=== PATIENT | female | born 1945 | race Caucasian/White ===

== ENCOUNTER 2020-07-16 11:09 | Outpatient (CLI) | payer MEDICARE, SELFPAY ==
[2020-07-16 11:48] LABS: Anion Gap 6 mmol/L (8-16); Blood Urea Nitrogen 15 mg/dL (7-17); Calcium 9.9 mg/dL (8.4-10.2); Carbon Dioxide 28 mmol/L (22-30); Chloride 102 mmol/L (98-107); Cholesterol 232 mg/dL (0-200); Estimated Glomerular Filt Rate > 60; Glucose 91 mg/dL (65-105); HDL Direct 97 mg/dL; Potassium 4.6 mmol/L (3.4-5.0); Sodium 136 mmol/L (137-145); Triglycerides 82 mg/dL (<150)
[2020-07-16 11:59] LABS: LDL Cholesterol Direct 108 mg/dL
== END 2020-07-16 11:10 | disposition home or self-care (01) ==
PROVIDERS: PCP Internal Medicine; Visit Provider Internal Medicine
DX: E78.5 Hyperlipidemia, unspecified (principal); I10 Essential (primary) hypertension
CPT/HCPCS: 36415; 80048; 80061

== ENCOUNTER 2020-08-20 02:07 | Outpatient (CLI) | payer MEDICARE, SELFPAY ==
[2020-08-20 18:25] LABS: SARS-CoV-2 RNA PCR Negative
== END 2020-08-20 02:08 | disposition home or self-care (01) ==
LOC: ANHCOVIDDT 02:07
PROVIDERS: PCP Internal Medicine; Visit Provider Internal Medicine Gastroenterology
DX: Z01.812 Encounter for preprocedural laboratory examination (principal); Z20.828 Contact with and (suspected) exposure to other viral communicable diseases
CPT/HCPCS: 87635; C9803; U0003

== ENCOUNTER 2020-08-23 02:46 | Day surgery (SDC) | payer MEDICARE, SELFPAY ==
[2020-08-17 13:58] VITALS: BMI 21.0
[2020-08-23 08:10] VITALS: BP 160/76; PULSE 64; RESP 20; TEMP 36.9; O2SAT 100; BMI 21.2
[2020-08-23] MEDS: LACTATED RINGERS 1,000 ML 150 ML IV CONT (08:26)
--- NOTE | 2020-08-23 08:39 | WPDGICN ---
Assessment and Plan Assessment and plan (1) Family history of colon cancer in father: Code(s): Z80.0 - Family history of malignant neoplasm of digestive organs Status: Acute Assessment and Plan: Patient's family history is significant father had colon cancer as well as 3 paternal uncles and a cousin all in inside the family. Patient herself has had colon polyps in the past. Plan is for surveillance colonoscopy now and at least at 5 year intervals in the future. GI Consult Note Consult date/time: 08/23/20 08:39 HPI: Nikunj Cohen is a 75 year old female Seen in evaluation at the request of Dr. Miguel A Armenta . patient presents for screening colonoscopy. Family history is significant her father had colon cancer 3 paternal uncles all had colon cancer as well as a cousin on that side of the family. Patient herself has had colon polyps in the past. Current weight appetite bowel movements are normal. She denies abdominal pain. She has had no bleeding. She presents today for screening colonoscopy. Review of Systems Review of Systems: All systems reviewed & are unremarkable except as noted in HPI and below PMFSH Family History Family History (Updated 07/15/19 @ 08:30 by DOCTOR UNKNOWN) Father Carcinoma of colon Mother Cerebrovascular accident Family history of hypothyroidism Social History Social History Smoking status: Never smoker Smoking end date: 11/05/73 Alcohol intake: current Drinks per week: 7 Alcohol use details: COCKTAIL/WINE Substance use: never Substance use type: does not use Living arrangements: alone Spiritual care concerns: No Meds Home Medications and Allergies Home Medications Medication Instructions Recorded Confirmed Type cetirizine 10 mg tablet 10 mg PO DAILY 07/16/20 08/17/20 History fluticasone propionate 50 2 spray NASAL DAILY 07/16/20 08/17/20 History mcg/actuation nasal spray,suspension Adults Multivitamin 1 tab-cap PO DAILY 08/17/20 08/17/20 History Vitamin D3 1,600 mg PO DAILY 08/17/20 08/17/20 History aspirin [Adult Low Dose Aspirin] 81 mg PO DAILY 08/17/20 08/17/20 History calcium 1,200 mg PO DAILY 08/17/20 08/17/20 History lysine [L-Lysine] 1,000 mg PO DAILY 08/17/20 08/17/20 History psyllium [Fiber Therapy (psyllium)] 4 tsp PO DAILY 08/17/20 08/17/20 History vitamin E mixed [Natural Vitamin E] 400 unit PO DAILY 08/17/20 08/17/20 History Allergies Allergy/AdvReac Type Severity Reaction Status Date / Time amoxicillin Allergy Intermediate Diarrhea Verified 08/23/20 08:09 mercury (elemental) Allergy Intermediate EYE Verified 08/23/20 08:09 DRAINAGE MERCURY Allergy Intermediate RASH/HIVES Uncoded 08/23/20 08:09 MERCURY COMPOUNDS Allergy Intermediate Hives Uncoded 08/23/20 08:09 Vital Signs Vital Signs - 24 hr 08/23/20 08:10 Temperature 98.4 F Pulse Rate 64 Respiratory Rate 20 Blood Pressure 160/76 H Pulse Oximetry 100 Exam Narrative: Exam Narrative: Physical exam reveals patient to be alert. Vital signs stable. HEENT exam unremarkable. Lungs are clear to auscultation and percussion. Heart is without murmur or extra sounds. Abdominal exam bowel sounds are present soft nontender with no organomegaly. Digital external rectal exam is normal.
--- NOTE | 2020-08-23 09:01 | WPDANESEPPF ---
Anes - Initial Pre Proc Eval Procedure: Operation Date: 08/23/20 09:00 Proposed Procedures p Screening Colonoscopy - Alexx Cantu MD Date/Time: 08/23/20 09:01 Surgeon: Alexx Cantu MD Pre Op Diagnosis: hx colon polyps, family hx colon CA Patient Data Age: 75 Gender: F Height: 5 ft 6 in Weight: 59.6 kg Last Vital Signs Temp 98.4 F 08/23/20 08:10 Pulse 64 08/23/20 08:10 Resp 20 08/23/20 08:10 BP 160/76 H 08/23/20 08:10 Pulse Ox 100 08/23/20 08:10 Allergies Allergy/AdvReac Type Severity Reaction Status Date / Time amoxicillin Allergy Intermediate Diarrhea Verified 08/23/20 08:09 mercury (elemental) Allergy Intermediate EYE Verified 08/23/20 08:09 DRAINAGE MERCURY Allergy Intermediate RASH/HIVES Uncoded 08/23/20 08:09 MERCURY COMPOUNDS Allergy Intermediate Hives Uncoded 08/23/20 08:09 Home Medications Medication Instructions Recorded Confirmed Type cetirizine 10 mg tablet 10 mg PO DAILY 07/16/20 08/17/20 History fluticasone propionate 50 2 spray NASAL DAILY 07/16/20 08/17/20 History mcg/actuation nasal spray,suspension Adults Multivitamin 1 tab-cap PO DAILY 08/17/20 08/17/20 History Vitamin D3 1,600 mg PO DAILY 08/17/20 08/17/20 History aspirin [Adult Low Dose Aspirin] 81 mg PO DAILY 08/17/20 08/17/20 History calcium 1,200 mg PO DAILY 08/17/20 08/17/20 History lysine [L-Lysine] 1,000 mg PO DAILY 08/17/20 08/17/20 History psyllium [Fiber Therapy (psyllium)] 4 tsp PO DAILY 08/17/20 08/17/20 History vitamin E mixed [Natural Vitamin E] 400 unit PO DAILY 08/17/20 08/17/20 History Patient hx anesthesia problems: none Family hx anesthesia problems: none PMFSH Past Medical History Medical History (Updated 08/23/20 @ 09:01 by Goldy Watkins MD) Essential (primary) hypertension Hypercholesterolemia Family History Family History (Updated 07/15/19 @ 08:30 by DOCTOR UNKNOWN) Father Carcinoma of colon Mother Cerebrovascular accident Family history of hypothyroidism Social History Social History Smoking status: Never smoker Smoking end date: 11/05/73 Alcohol intake: current Drinks per week: 7 Alcohol use details: COCKTAIL/WINE Substance use: never Substance use type: does not use Living arrangements: alone Spiritual care concerns: No Anes - Eval Final PreProcedure Day of Procedure 08/23/20 09:01 Patient weight: normal Heart: regular rate and rhythm Lungs: clear to auscultation Airway: Mallampati scale class III Neurological: alert and oriented Last oral intake: >/= 8 hours ASA classification: II Emergent: no Anesthetic plan: proceed Anesthesia type and monitoring: general GIVS and standard monitoring Informed Consent: The patient's anesthetic plan and its attendant risks and benefits were discussed with the patient/family/POA. Questions were solicited and answers provided to the satisfaction of the patient/family/POA.
[2020-08-23 09:41] VITALS: BP 118/66; PULSE 64; RESP 20; O2SAT 100
[2020-08-23 09:51] VITALS: BP 109/69; PULSE 62; RESP 16; O2SAT 100
[2020-08-23 10:01] VITALS: BP 150/73; PULSE 64; RESP 16; O2SAT 100
== END 2020-08-23 10:14 | disposition home or self-care (01) ==
PROVIDERS: PCP Internal Medicine; Visit Provider Internal Medicine Gastroenterology
PROC: 0DJD8ZZ Inspection of Lower Intestinal Tract, Via Natural or Artificial Opening Endoscopic (ICD-10-PCS; CPT 45378; principal; 2020-08-23 09:00)
DX: Z12.11 Encounter for screening for malignant neoplasm of colon (principal); D12.3 Benign neoplasm of transverse colon; K57.30 Diverticulosis of large intestine without perforation or abscess without bleeding; K64.8 Other hemorrhoids; Z80.0 Family history of malignant neoplasm of digestive organs; Z79.82 Long term (current) use of aspirin
CPT/HCPCS: 45385; 88305; J2704; J7120

== ENCOUNTER → 2020-09-22 10:59 | Outpatient (CLI) | payer MEDICARE, SELFPAY ==
--- NOTE | ~2020-09-22 | DEXA_ITS ---
Bone Density Report Name: Nikunj Cohen Age: 75 Sex: Female Ethnicity: White Date of : 1945 Indication: osteopenia; parental hip fracture; height loss;postmenopausal Referring Provider: ELIF MC D.O. Study: Bone densitometry was performed. Exam Date: September 22, 2020 Accession number: [id number] Bone Density: Region BMD T-score Z-score Classification AP Spine (L1, L4) 0.931 -1.0 1.6 Normal Femoral Neck (Left) 0.635 -1.9 0.3 Osteopenia Total Hip (Left) 0.798 -1.2 0.7 Osteopenia Femoral Neck (Right) 0.584 -2.4 -0.2 Osteopenia Total Hip (Right) 0.815 -1.0 0.9 Normal Total Hip Mean 0.807 -1.1 0.8 Osteopenia World Health Organization criteria for BMD impression classify patients as: Normal (T-score at or above -1.0), Osteopenia (T-score between -1.0 and -2.5), or Osteoporosis (T-score at or below -2.5). 10-year Fracture Risk(1): Major Osteoporotic Fracture 29% Hip Fracture 20% Reported Risk Factors: [place] (), Neck BMD=0.584, BMI=21.8, parental fracture (1) FRAX(R) Version 3.08. Fracture probability calculated for an untreated patient. Fracture probability may be lower if the patient has received treatment. Previous Exams: Region Exam Age BMD T-score BMD Change BMD Change Date g/cm2 vs Baseline vs Previous AP Spine(L1, L4) 09/22/2020 75 0.931 -1.0 0.031* 0.011 08/13/2018 73 0.920 -1.1 0.020 -0.037* 04/29/2016 70 0.957 -0.7 0.056* 0.038* 02/10/2013 67 0.919 -1.1 0.019 0.005 02/01/2011 65 0.915 -1.1 0.014 0.006 01/31/2010 64 0.908 -1.2 0.008 -0.036* 01/20/2008 62 0.945 -0.8 0.044* 0.044* 01/15/2006 60 0.901 -1.2 Total Hip(Left) 09/22/2020 75 0.798 -1.2 -0.029* -0.009 08/13/2018 73 0.807 -1.1 -0.020 -0.011 04/29/2016 70 0.818 -1.0 -0.009 0.067* 02/10/2013 67 0.751 -1.6 -0.076* -0.011 02/01/2011 65 0.762 -1.5 -0.065* -0.007 01/31/2010 64 0.769 -1.4 -0.058* -0.003 01/20/2008 62 0.773 -1.4 -0.055* -0.055* 01/15/2006 60 0.827 -0.9 Total Hip(Right) 09/22/2020 75 0.815 -1.0 -0.027 0.015 08/13/2018 73 0.800 -1.2 -0.042* -0.050* 04/29/2016 70 0.850 -0.8 0.008 0.080* 02/10/2013 67 0.770 -1.4 -0.071* 0.015 02/01/2011 65 0.755 -1.5 -0.087* -0.014 01/31/2010 64 0.769 -1.4 -0.073* 0.014
--- NOTE | ~2020-09-22 | MM_ITS ---
EXAMINATION: MM screening [facility] BI w lizbeth HISTORY: Screening mammogram TECHNIQUE: Craniocaudal and mediolateral oblique 3-D tomosynthesis images were obtained and synthetic 2-D images were generated. CAD analysis was submitted and interpreted. COMPARISON: 09/03/2019, 08/23/2018, 04/29/2016 BREAST PARENCHYMAL COMPOSITION: There are scattered areas of fibroglandular density. FINDINGS: There is no evidence of suspicious mass, calcification, or architectural distortion to sugg est malignancy in either breast. There has been no suspicious interval change. IMPRESSION: 1. No mammographic evidence of malignancy. 2. Recommend routine screening mammography in one year. BI-RADS Category 1: Negative Reviewed, dictated and finalized at location A. [employer]
== END ==
PROVIDERS: PCP Internal Medicine; Visit Provider Internal Medicine
DX: Z12.31 Encounter for screening mammogram for malignant neoplasm of breast (principal); Z13.820 Encounter for screening for osteoporosis; M81.0 Age-related osteoporosis without current pathological fracture; M85.852 Other specified disorders of bone density and structure, left thigh; M85.851 Other specified disorders of bone density and structure, right thigh
CPT/HCPCS: 77063; 77067; 77080

== ENCOUNTER 2021-07-08 09:22 | Outpatient (CLI) | payer MEDICARE, SELFPAY ==
[2021-07-08 10:18] LABS: Alanine Aminotransferase 20 U/L (4-35); Albumin Level 4.5 g/dL (3.5-5.1); Alkaline Phosphatase 26 U/L (38-126); Anion Gap 5 mmol/L (8-16); Aspartate Amino Transferase 31 U/L (14-36); Bilirubin,Total 0.3 mg/dL (0.2-1.3); Blood Urea Nitrogen 22 mg/dL (7-17); Calcium 9.8 mg/dL (8.4-10.2); Carbon Dioxide 30 mmol/L (22-30); Chloride 105 mmol/L (98-107); Cholesterol 239 mg/dL (0-200); Estimated Glomerular Filt Rate > 60; Glucose 112 mg/dL (65-110); HDL Direct 88 mg/dL; Potassium 4.7 mmol/L (3.4-5.0); Sodium 140 mmol/L (137-145); Triglycerides 70 mg/dL (<150)
[2021-07-08 10:29] LABS: LDL Cholesterol Direct 117 mg/dL
[2021-07-08 10:48] LABS: Vitamin D 25 Hydroxy 58.1 ng/mL
== END 2021-07-08 09:23 | disposition home or self-care (01) ==
PROVIDERS: PCP Internal Medicine; Visit Provider Nurse Practitioner
DX: Z51.81 Encounter for therapeutic drug level monitoring (principal); Z79.899 Other long term (current) drug therapy; Z13.21 Encounter for screening for nutritional disorder
CPT/HCPCS: 36415; 80053; 80061; 82306; 84443

== ENCOUNTER → 2021-09-26 10:05 | Outpatient (CLI) | payer MEDICARE, SELFPAY ==
--- NOTE | ~2021-09-26 | MM_ITS ---
EXAMINATION: MM screening [facility] BI w lizbeth HISTORY: Screening mammogram TECHNIQUE: Craniocaudal and mediolateral oblique 3-D tomosynthesis images were obtained and synthetic 2-D images were generated. CAD analysis was submitted and interpreted. COMPARISON: 09/22/2020, 09/03/2019 BREAST PARENCHYMAL COMPOSITION: There are scattered areas of fibroglandular density. FINDINGS: There is no evidence of suspicious mass, calcification, or architectural distortion to sugg est malignancy in either breast. There has been no suspicious interval change. IMPRESSION: 1. No mammographic evidence of malignancy. 2. Recommend routine screening mammography in one year. BI-RADS Category 1: Negative Reviewed, dictated and finalized at location A. D CARE PROVIDER
== END ==
PROVIDERS: PCP Internal Medicine; Visit Provider Nurse Practitioner
DX: Z12.31 Encounter for screening mammogram for malignant neoplasm of breast (principal)
CPT/HCPCS: 77063; 77067

== ENCOUNTER 2022-05-19 08:39 | Outpatient (CLI) | payer MEDICARE, SELFPAY ==
--- NOTE | 2022-05-19 | ECG_ITS ---
Measurements Intervals [place] Rate: 63 P: 52 SD: 210 QRS: -3 QRSD: 82 T: 1 QT: 378 QTc: 387 Interpretive Statements SINUS RHYTHM WITH FIRST DEGREE AV BLOCK DELAYED PRECORDIAL R/S TRANSITION BORDERLINE T WAVE ABNORMALITY- INFERIOR LEADS BASELINE ARTIFACT- I, II, III, AVR, AVL, AVF ABNORMAL ECG Electronically Signed On 05-19-2022 18:30:18 CDT by Joe Rashid D.O.
== END 2022-05-19 08:40 | disposition home or self-care (01) ==
PROVIDERS: PCP Internal Medicine
DX: M72.0 Palmar fascial fibromatosis [Dupuytren] (principal); Z01.818 Encounter for other preprocedural examination; I44.0 Atrioventricular block, first degree
CPT/HCPCS: 93005

== ENCOUNTER 2022-06-30 09:12 | Outpatient (CLI) | payer MEDICARE, SELFPAY ==
[2022-06-30 09:46] LABS: Alanine Aminotransferase 19 U/L (6-35); Albumin Level 4.5 g/dL (3.5-5.1); Alkaline Phosphatase 37 U/L (38-126); Anion Gap 4 mmol/L (8-16); Aspartate Amino Transferase 29 U/L (14-36); Bilirubin,Total 0.5 mg/dL (0.2-1.3); Blood Urea Nitrogen 18 mg/dL (7-17); Calcium 9.3 mg/dL (8.4-10.2); Carbon Dioxide 32 mmol/L (22-30); Chloride 103 mmol/L (98-107); Cholesterol 207 mg/dL (0-200); Estimated Glomerular Filt Rate 60; Glucose 94 mg/dL (65-110); HDL Direct 100 mg/dL; Potassium 4.9 mmol/L (3.4-5.0); Sodium 139 mmol/L (137-145); Triglycerides 64 mg/dL (<150)
[2022-06-30 09:57] LABS: LDL Cholesterol Direct 76 mg/dL
[2022-06-30 10:06] LABS: Vitamin D 25 Hydroxy 62.5 ng/mL
== END 2022-06-30 09:13 | disposition home or self-care (01) ==
PROVIDERS: PCP Internal Medicine; Visit Provider Internal Medicine
DX: Z13.6 Encounter for screening for cardiovascular disorders (principal); Z79.899 Other long term (current) drug therapy; Z13.21 Encounter for screening for nutritional disorder; E78.00 Pure hypercholesterolemia, unspecified
CPT/HCPCS: 36415; 80053; 80061; 82306

== ENCOUNTER → 2022-10-10 14:28 | Outpatient (CLI) | payer MEDICARE, SELFPAY ==
--- NOTE | ~2022-10-10 | DEXA_ITS ---
Bone Density Report Name: JUAN RAMON VASQUEZ Age: 77 Sex: Female Ethnicity: White Date of : 1945 Indication: osteopenia; parental hip fracture; height loss; postmenopausal Referring Provider: Miguel A Armenta Study: Bone densitometry was performed. Exam Date: October 10, 2022 Accession number: [id number] Bone Density: Region BMD T-score Z-score Classification AP Spine (L1, L4) 0.977 -0.5 2.1 Normal Femoral Neck (Left) 0.598 -2.3 0.0 Osteopenia Total Hip (Left) 0.787 -1.3 0.7 Osteopenia Femoral Neck (Right) 0.568 -2.5 -0.3 Osteoporosis Total Hip (Right) 0.797 -1.2 0.8 Osteopenia Total Hip Mean 0.792 -1.3 0.8 Osteopenia World Health Organization criteria for BMD impression classify patients as: Normal (T-score at or above -1.0), Osteopenia (T-score between -1.0 and -2.5), or Osteoporosis (T-score at or below -2.5). 10-year Fracture Risk: FRAX not reported because: Some T-score for Spine Total or Hip Total or Femoral Neck at or below -2.5 Previous Exams: Region Exam Age BMD T-score BMD Change BMD Change Date g/cm2 vs Baseline vs Previous AP Spine(L1, L4) 10/10/2022 77 0.977 -0.5 0.076* 0.046* 09/22/2020 75 0.931 -1.0 0.031* 0.011 08/13/2018 73 0.920 -1.1 0.020 -0.037* 04/29/2016 70 0.957 -0.7 0.056* 0.038* 02/10/2013 67 0.919 -1.1 0.019 0.005 02/01/2011 65 0.915 -1.1 0.014 0.006 01/31/2010 64 0.908 -1.2 0.008 -0.036* 01/20/2008 62 0.945 -0.8 0.044* 0.044* 01/15/2006 60 0.901 -1.2 Total Hip(Left) 10/10/2022 77 0.787 -1.3 -0.041* -0.012 09/22/2020 75 0.798 -1.2 -0.029* -0.009 08/13/2018 73 0.807 -1.1 -0.020 -0.011 04/29/2016 70 0.818 -1.0 -0.009 0.067* 02/10/2013 67 0.751 -1.6 -0.076* -0.011 02/01/2011 65 0.762 -1.5 -0.065* -0.007 01/31/2010 64 0.769 -1.4 -0.058* -0.003 01/20/2008 62 0.773 -1.4 -0.055* -0.055* 01/15/2006 60 0.827 -0.9 Total Hip(Right) 10/10/2022 77 0.797 -1.2 -0.045* -0.018 09/22/2020 75 0.815 -1.0 -0.027 0.015 08/13/2018 73 0.800 -1.2 -0.042* -0.050* 04/29/2016 70 0.850 -0.8 0.008 0.080* 02/10/2013 67 0.770 -1.4 -0.071* 0.015 02/01/2011 65 0.755 -1.5 -0.087* -0.014 01/31/2010 64 0.769 -1.4 -0.073* 0.014 01/20/2008
--- NOTE | ~2022-10-10 | MM_ITS ---
EXAMINATION: MM screening [facility] BI w lizbeth HISTORY: Screening mammogram TECHNIQUE: Craniocaudal and mediolateral oblique 3-D tomosynthesis images were obtained and synthetic 2-D images were generated. CAD analysis was submitted and interpreted. COMPARISON: 09/26/2021, 09/22/2020, 09/03/2019, 08/13/2018 BREAST PARENCHYMAL COMPOSITION: There are scattered areas of fibroglandular density. FINDINGS: RIGHT BREAST: No suspicious mass, calcification, or architectural distortion are identified to sugges t malignancy. There has been no suspicious interval change. LEFT BREAST: An asymmetry is present in the posterior third of the outer breast on the craniocaudal v iew. IMPRESSION: 1. Left breast asymmetry on the craniocaudal view. 2. Additional mammographic views and possible breast ultrasound are recommended. BI-RADS Category 0: Incomplete: Needs additional imaging evaluation. Reviewed, dictated and finalized at location A. IA WRAPPER MAKER IMPRESSION: 1. Left breast asymmetry on the craniocaudal view. 2. Additional mammographic views and possible breast ultrasound are recommended . BI-RADS Category 0: Incomplete: Needs additional imaging evaluation.
== END ==
PROVIDERS: PCP Internal Medicine; Visit Provider Internal Medicine
DX: Z12.31 Encounter for screening mammogram for malignant neoplasm of breast (principal); M81.0 Age-related osteoporosis without current pathological fracture; N64.89 Other specified disorders of breast
CPT/HCPCS: 77063; 77067; 77080

== ENCOUNTER 2022-11-04 11:12 | Emergency (ER) | payer MEDICARE, SELFPAY ==
--- NOTE | ~2022-11-04 | XR_ITS ---
EXAMINATION: XR knee RT 3V DATE: 11/04/2022 12:11 INDICATION: Right knee pain. Fall. TECHNIQUE: 3 views of right knee were obtained. COMPARISON: None. FINDINGS: There is a comminuted fracture of patella. There is 2 mm offset at the articular surface. T here is mild osteoarthritis of patellofemoral compartment. There is a small knee joint effusion. Ther e is anterior knee soft tissue swelling. IMPRESSION: 1. Comminuted fracture of patella. Reviewed, dictated and finalized at location A. CTOR MOBILE
--- NOTE | ~2022-11-04 | XR_ITS ---
EXAMINATION: XR ankle RT min 3V DATE: 11/04/2022 12:11 INDICATION: Right ankle pain and swelling. Fall. TECHNIQUE: 4 views of right ankle were obtained. COMPARISON: None. FINDINGS: Bone alignment is normal. No fracture. Joint spaces are normal. There is ankle soft tissue swelling. IMPRESSION: 1. No fracture. Reviewed, dictated and finalized at location A. ING SALON ATTENDANT IMPRESSION: 1. No fracture.
--- NOTE | ~2022-11-04 | XR_ITS ---
EXAMINATION: XR hand LT 2V DATE: 11/04/2022 12:12 INDICATION: Left hand pain and swelling. Fall. TECHNIQUE: 3 views of left hand were obtained. COMPARISON: None. FINDINGS: There is hyperextension of fifth proximal interphalangeal joint. No acute fracture. There i s an old fracture deformity of base of fifth distal phalanx. There is mild osteoarthritis of first ca rpometacarpal joint, first metacarpophalangeal joint, and some of the interphalangeal joints. IMPRESSION: 1. Mild polyarticular osteoarthritis. Reviewed, dictated and finalized at location A. R BOILER
[2022-11-04 11:45] VITALS: BP 154/73; PULSE 88; RESP 16; TEMP 36.6; O2SAT 100
--- NOTE | 2022-11-04 12:35 | ED.LOWEXIN ---
HPI - Extremity Injury (Lower) General Chief Complaint: Extremity Injury, Lower Stated Complaint: fall, right leg pain Time Seen by Provider: 11/04/22 12:38 Source: patient Mode of arrival: ambulatory Limitations: no limitations History of Present Illness HPI Narrative: 77-year-old female presented for complaint of pain to the right knee, right ankle and left hand after a fall 12 days ago. She states she missed a step and tripped on her neighbor's porch causing her to fall forward. She endorses striking her head, and resulted in a left diapers. She denies loss of consciousness. She reports she has continued to have swelling around the knee and now down to the ankle with bruising. States it feels like a burning sensation. She has been walking and using crutches at home. Denies numbness, tingling or weakness. Denies chest pain, shortness of breath, wheezing or dizziness. Related Data Home Medications Medication Instructions Recorded Confirmed fluticasone propionate 50 2 spray intranasal DAILY PRN 07/16/20 07/12/22 mcg/actuation nasal Congestion spray,suspension (Flonase Allergy Relief) aspirin 81 mg tablet 81 mg PO DAILY 08/17/20 07/12/22 calcium 600 mg capsule 1,200 mg PO DAILY 08/17/20 07/12/22 lysine 500 mg tablet (L-Lysine) 1,000 mg PO DAILY 08/17/20 07/12/22 psyllium 4 tsp PO DAILY 08/17/20 07/12/22 vitamin E mixed 400 unit capsule 400 unit PO DAILY 08/17/20 07/12/22 cetirizine 10 mg capsule (Zyrtec) 10 mg PO DAILY 05/02/22 07/12/22 multivitamin with minerals-folic 1 tablet PO DAILY 05/02/22 07/12/22 acid 0.4 mg tablet Allergies Allergy/AdvReac Type Severity Reaction Status Date / Time amoxicillin AdvReac Intermediate Diarrhea Verified 07/12/22 13:06 MERCURY COMPOUNDS Allergy Intermediate ITCHING AT Uncoded 05/02/22 11:38 EYES Review of Systems Review of Systems: per HPI All systems reviewed & are unremarkable except as noted in HPI and below PMFSH Past Medical History Medical History Essential (primary) hypertension Hypercholesterolemia Family History Family History Father Carcinoma of colon Mother Cerebrovascular accident Family history of hypothyroidism Social History Social History Smoking packs per day: 0.25 Smoking cigarettes per day: 5.0 Years smoked: 7 Smoking pack-years: 1.75 Smoking status: Former smoker Tobacco type: cigarettes Smoking end date: 05/05/70 Alcohol intake: current Drinks per week: 7 Alcohol use details: COCKTAIL/WINE Substance use: never Substance use type: does not use Spiritual care concerns: No Comments At time of signature, I have reviewed and agree with nursing past medical, surgical, social and family history unless otherwise noted. Please see nursing chart for further information. There is no relevant family history pertinent to the presenting complaint Exam Narrative: GENERAL: Well-appearing, well-nourished HEAD: Normocephalic EYES: PERRLA, conjunctivae clear left lower eye/orbit yellow bruising NECK: Supple. full ROM CHEST: Speaks in full sentences. No respiratory distress. HEART: Regular rate and rhythm. Normal and equal peripheral pulses. EXTREMITIES: Right knee with full ROM, able to fully extend at knee with passive assistance; moderate swelling to the right knee down to the ankle. Wearing compression socks. Moderate medial thigh bruising. RLE has slightly decreased strength and normal sensation. No open wounds, alignment normal, pulse palpable and equal bilaterally, skin warm, dry, pink. Capillary refill less than 3 seconds. Left hand 4th and 5th digit bruising with mild swelling. SKIN: Warm, dry, no rash. NEURO: Alert and oriented x3. PSYCH: Normal mood and affect Course Course Emergency Course: Patient is aware of diagnosis, un
== END 2022-11-04 13:05 | disposition home or self-care (01) ==
PROVIDERS: Emergency Provider Nurse Practitioner Family; PCP Internal Medicine
DX: S82.041A Displaced comminuted fracture of right patella, initial encounter for closed fracture (principal); W10.9XXA Fall (on) (from) unspecified stairs and steps, initial encounter; I10 Essential (primary) hypertension; E78.00 Pure hypercholesterolemia, unspecified; Z87.891 Personal history of nicotine dependence
CPT/HCPCS: 73120; 73562; 73610; 99214; G0463; L1830

== ENCOUNTER → 2023-01-01 07:48 | Outpatient (CLI) | payer MEDICARE, SELFPAY ==
--- NOTE | ~2023-01-01 | MMUS_ITS ---
EXAMINATION: MM diagnostic [facility] LT w lizbeth, US breast LT limited HISTORY: Mammographic asymmetry reported in lateral left breast on screening craniocaudal view of 10/10/2022 TECHNIQUE: Additional 3-D tomosynthesis images of the left breast were performed and synthetic 2-D im ages were generated. CAD analysis was submitted and interpreted. High resolution upper outer quadrant and lower outer quadrant left breast ultrasound was performed. COMPARISON: 10/10/2022, 09/26/2021, 09/22/2020 bilateral screening mammogram examinations FINDINGS: MAMMOGRAPHIC FINDINGS: No suspicious mass is evident. There is mild mammographic asymmetry in the outer mid left breast. Ult rasound examination of the upper outer and lower-outer quadrants was performed. ULTRASOUND: No suspicious mass or shadowing, cyst or other significant sonographic finding is noted in the outer half of the left breast. IMPRESSION: 1. No mammographic evidence of malignancy 2. Routine annual mammographic screening is recommended BI-RADS Category 1: Negative Reviewed, dictated and finalized at location A. ING CLERKS IMPRESSION: 1. No mammographic evidence of malignancy 2. Routine annual mammographic screening is recommended BI-RADS Category 1: Negative
== END ==
PROVIDERS: PCP Internal Medicine; Visit Provider Internal Medicine
DX: R92.8 Other abnormal and inconclusive findings on diagnostic imaging of breast (principal)
CPT/HCPCS: 76642; 77061; 77065; G0279

== ENCOUNTER 2023-05-05 10:42 | Emergency (ER) | payer MEDICARE, SELFPAY ==
--- NOTE | ~2023-05-05 | XR_ITS ---
EXAMINATION: XR chest 2V DATE: 05/05/2023 11:34 INDICATION: Left-sided chest pain TECHNIQUE: PA and lateral views of the chest are obtained. COMPARISON: 05/30/2012 FINDINGS: The lungs are free of acute opacities. No pleural effusion or pneumothorax. The cardiomedia stinal silhouette is normal. There is mild thoracic spondylosis. IMPRESSION: 1. No acute cardiopulmonary abnormality. Reviewed, dictated and finalized at location A.
--- NOTE | 2023-05-05 11:00 | ECG_ITS ---
Measurements Intervals [place] Rate: 59 P: -38 [place]: 197 QRS: -20 QRSD: 84 T: -6 QT: 393 QTc: 392 Interpretive Statements SINUS BRADYCARDIA BORDERLINE ST-T WAVE ABNORMALITY- INFERIOR LEADS BORDERLINE ECG COMPARED TO ECG 05/19/2022 09:08:23 SINUS BRADYCARDIA NOW PRESENT Electronically Signed On 05-05-2023 15:46:02 CDT by Joe Rashid D.O.
[2023-05-05 11:01] VITALS: BP 152/91; PULSE 65; RESP 16; TEMP 36.6; O2SAT 100
--- NOTE | 2023-05-05 11:16 | ED.CHESTPAIN ---
HPI - Chest Pain General Chief Complaint: Extremity Problem,Nontraumatic Stated Complaint: CHEST PAIN/L ARM NUMBNESS Time Seen by Provider: 05/05/23 11:10 Source: patient, RN notes reviewed and old records reviewed Mode of arrival: ambulatory Limitations: no limitations History of Present Illness HPI narrative: 77 year old female presents to [facility] care with complaints of left upper chest pain radiating laterally to under her left arm which started last night at around midnight. Patient reports that her left arm feels numb and tingling at times and pain is worse when she raises her arm. Patient reports that she took a regular aspirin this morning instead of her baby aspirin. Patient reports that she has no shortness of breath denies any increased pain with deep breathing. Patient has strong pulses to left arm with brisk capillary refill to her fingers. patient reports that she push mowed her yard yesterday, denies any known injury to her arm, neck or upper back. MD complaint: other (left upper chest pain going to left lateral area under arm with increase pain when lifts arm) Onset (ago): day(s) (at midnight 11-12 hours ago) Prior episodes: No Treatment prior to arrival: aspirin Related Data Home Medications Medication Instructions Recorded Confirmed aspirin 81 mg tablet 81 mg PO DAILY 08/17/20 05/05/23 calcium 600 mg capsule 1,200 mg PO DAILY 08/17/20 12/20/22 lysine 500 mg tablet (L-Lysine) 1,000 mg PO DAILY 08/17/20 12/20/22 vitamin E mixed 400 unit capsule 400 unit PO DAILY 08/17/20 12/20/22 multivitamin with minerals-folic 1 tablet PO DAILY 05/02/22 12/20/22 acid 0.4 mg tablet Allergies Allergy/AdvReac Type Severity Reaction Status Date / Time amoxicillin AdvReac Intermediate Diarrhea Verified 05/05/23 11:13 MERCURY COMPOUNDS Allergy Intermediate ITCHING AT Uncoded 05/05/23 11:13 EYES Review of Systems Review of Systems: CONSTITUTIONAL: Denies fever, chills, or sweats. EYES: Denies visual changes, redness, or discharge. ENT: Denies rhinorrhea, congestion, sore throat, or otalgia. CARDIOVASCULAR: left upper chest pain radiates to lateral chest under arm,no palpitations, or edema. RESPIRATORY: Denies cough or dyspnea. GASTROINTESTINAL: Denies abdominal pain, nausea, vomiting, or diarrhea. GENITOURINARY: Denies dysuria or hematuria. SKIN: Denies rash or itching. MUSCULOSKELETAL: Denies back pain, joint pain, or myalgia. NEUROLOGIC: Denies headache, numbness, or weakness. PSYCHIATRIC: Denies anxiety or depression. All systems reviewed & are unremarkable except as noted in HPI and below PMFSH Past Medical History Medical History (Updated 05/06/23 @ 16:33 by Iraida Adame NP) Dupuytren's contracture of left hand Essential (primary) hypertension Herpes keratitis of right eye Hypercholesterolemia DEON (obstructive sleep apnea) Osteoporosis Pneumonia Spinal cord abscess Synovial cyst of lumbar spine removed Surgical History Surgical History (Updated 05/06/23 @ 16:30 by Iraida Adame NP) H/O dilation and curettage Status post endovenous radiofrequency ablation (RFA) of saphenous vein Family History Family History Father Carcinoma of colon Mother Cerebrovascular accident Family history of hypothyroidism Social History Social History Smoking packs per day: 0.25 Smoking cigarettes per day: 5.0 Years smoked: 7 Smoking pack-years: 1.75 Smoking status: Former smoker Tobacco type: cigarettes Smoking end date: 05/05/70 Alcohol intake: current Drinks per week: 7 Alcohol use details: COCKTAIL/WINE Substance use: never Substance use type: does not use Lack of Transportation: No Lack of Food: Never True Current Housing: I Have Housing Concerned About Future Housing: No Difficulty Paying Gas/Electric Bills: No Difficulty Paying for Meds: No Currently
[2023-05-05] MEDS: KETOROLAC 30 MG/ML VIAL (*BKC) IM (12:15)
== END 2023-05-05 12:26 | disposition home or self-care (01) ==
PROVIDERS: Emergency Provider Registered Nurse; PCP Nurse Practitioner
DX: R07.89 Other chest pain (principal); Z79.82 Long term (current) use of aspirin; I10 Essential (primary) hypertension; E78.00 Pure hypercholesterolemia, unspecified; M81.0 Age-related osteoporosis without current pathological fracture; Z87.891 Personal history of nicotine dependence
CPT/HCPCS: 71046; 93005; 96372; 99213; G0463; J1885

== ENCOUNTER 2023-07-20 09:32 | Outpatient (CLI) | payer MEDICARE, SELFPAY ==
[2023-07-20 10:08] LABS: Hematocrit 42.7 % (37.0-47.0); Hemoglobin 13.5 g/dL (12.0-15.0); Mean Corpuscular HGB Conc 31.6 g/dl (32-36); Mean Corpuscular Hemoglobin 30.5 pg (26-34); Mean Corpuscular Volume 96.6 fl (80-100); Mean Platelet Volume 10.5 fl (7.4-10.4); Platelet Count Result 233 k/mm3 (150-375); Red Blood Count 4.42 M/mm3 (4.2-5.4); Red Cell Distribution Width 12.8 % (11.5-14.5); White Blood Count 4.6 K/mm3 (4.5-10.0)
[2023-07-20 10:20] LABS: Alanine Aminotransferase 21 U/L (6-35); Alkaline Phosphatase 38 U/L (38-126); Anion Gap 4 mmol/L (8-16); Aspartate Amino Transferase 28 U/L (14-36); Bilirubin,Total 0.5 mg/dL (0.2-1.3); Blood Urea Nitrogen 15 mg/dL (7-17); Calcium 9.1 mg/dL (8.4-10.2); Carbon Dioxide 29 mmol/L (22-30); Chloride 105 mmol/L (98-107); Cholesterol 237 mg/dL (0-200); Estimated Glomerular Filt Rate 60; Glucose 88 mg/dL (65-110); HDL Direct 98 mg/dL; Potassium 4.3 mmol/L (3.4-5.0); Sodium 138 mmol/L (137-145); Triglycerides 56 mg/dL (<150)
[2023-07-20 10:30] LABS: LDL Cholesterol Direct 107 mg/dL
== END 2023-07-20 09:33 | disposition home or self-care (01) ==
LOC: ANHLAB 09:33
PROVIDERS: PCP Nurse Practitioner; Visit Provider Nurse Practitioner
DX: Z79.899 Other long term (current) drug therapy (principal)
CPT/HCPCS: 36415; 80053; 80061; 84443; 85027

== ENCOUNTER 2023-09-15 17:00 | Emergency (ER) | payer MEDICARE, SELFPAY ==
[2023-09-15 17:11] VITALS: BP 200/94; PULSE 70; RESP 16; TEMP 36.4; O2SAT 100
[2023-09-15 17:13] VITALS: BP 200/94; PULSE 70; RESP 16; TEMP 36.4; O2SAT 100
--- NOTE | 2023-09-15 17:27 | ED.WOUNDLAC ---
HPI - Wound/Laceration General Chief Complaint: Wound/Laceration Stated Complaint: Cut wrist Time Seen by Provider: 09/15/23 17:20 Source: patient, RN notes reviewed and old records reviewed Mode of arrival: ambulatory Limitations: no limitations History of Present Illness HPI narrative: 78 year old female who presents to [facility] care with complaints of wound to her right inner forearm from her Euonymus tree when she was pruning the leaves when a piece poked into her right forearm and scraped upward causing skin tear to skin measuring 4cm X2.5cm with some yellow colored drainage on old dressing noted. Patient denies any fever, chills or sweats,patient reports she came here because she felt wound looking more swollen today. Patient has been rinsing with tepid water, application of Neosporin and Telfa and Coban wrap dressing. Onset (ago): week(s) (3days) Location: other (right inner forearm) Extremity Location: Right: forearm (inner forearm) Treatments prior to arrival: bandage and other (cleansing) Related Data Home Medications Medication Instructions Recorded Confirmed aspirin 81 mg tablet 81 mg PO DAILY 08/17/20 09/15/23 calcium 600 mg capsule 1,200 mg PO DAILY 08/17/20 09/15/23 lysine 500 mg tablet (L-Lysine) 1,000 mg PO DAILY 08/17/20 09/15/23 vitamin E mixed 400 unit capsule 400 unit PO DAILY 08/17/20 09/15/23 multivitamin with minerals-folic 1 tablet PO DAILY 05/02/22 09/15/23 acid 0.4 mg tablet Allergies Allergy/AdvReac Type Severity Reaction Status Date / Time amoxicillin AdvReac Intermediate Diarrhea Verified 09/15/23 17:12 MERCURY COMPOUNDS Allergy Intermediate ITCHING AT Uncoded 09/15/23 17:12 EYES Review of Systems Review of Systems: CONSTITUTIONAL: Denies fever, chills, or sweats. CARDIOVASCULAR: Denies chest pain, palpitations, or edema. RESPIRATORY: Denies cough or dyspnea. GASTROINTESTINAL: Denies abdominal pain, nausea, vomiting SKIN: Reports skin wound to right inner forearm redness and swelling. positive for yellowish colored drainage, no vesicles, bullae, numbness,or pain beyond proportion MUSCULOSKELETAL: Denies myalgia. NEUROLOGIC: Denies headache, numbness All systems reviewed & are unremarkable except as noted in HPI and below PMFSH Past Medical History Medical History Dupuytren's contracture of left hand Essential (primary) hypertension Herpes keratitis of right eye Hypercholesterolemia DEON (obstructive sleep apnea) Osteoporosis Pneumonia Spinal cord abscess Synovial cyst of lumbar spine removed Surgical History Surgical History H/O dilation and curettage Status post endovenous radiofrequency ablation (RFA) of saphenous vein Family History Family History Father Carcinoma of colon Mother Cerebrovascular accident Family history of hypothyroidism Social History Social History Smoking packs per day: 0.25 Smoking cigarettes per day: 5.0 Years smoked: 7 Smoking pack-years: 1.75 Smoking status: Former smoker Tobacco type: cigarettes Smoking end date: 05/05/70 Alcohol intake: current Drinks per week: 7 Alcohol use details: COCKTAIL/WINE Substance use: never Substance use type: does not use Lack of Transportation: No Lack of Food: Never True Current Housing: I Have Housing Concerned About Future Housing: No Difficulty Paying Gas/Electric Bills: No Difficulty Paying for Meds: No Currently Unemployed: No Education: High School Diploma/GED Difficulty w/ Childcare or Family Care: No Living arrangements: alone Spiritual care concerns: No Comments At time of signature, agree with nursing past medical, surgical, social and family history. There is no relevant family history pertinent to the presenting complaint
== END 2023-09-15 17:32 | disposition home or self-care (01) ==
PROVIDERS: Emergency Provider Registered Nurse; PCP Nurse Practitioner
DX: S51.811A Laceration without foreign body of right forearm, initial encounter (principal); I10 Essential (primary) hypertension; Z79.82 Long term (current) use of aspirin; Z79.899 Other long term (current) drug therapy; Z87.891 Personal history of nicotine dependence; W45.8XXA Other foreign body or object entering through skin, initial encounter
CPT/HCPCS: 87070; 87075; 87076; 87147; 87181; 87186; 87205; 99213; G0463

== ENCOUNTER 2024-07-22 09:00 | Outpatient (CLI) | payer MEDICARE, SELFPAY ==
[2024-07-22 09:33] LABS: Basophils Percent Auto 0.5 % (0.2-1.2); Eosinophils Absolute Auto 0.2 K/mm3 (0-0.3); Eosinophils Percent Auto 3.5 % (0-4.4); Hemoglobin 13.4 g/dL (12.0-15.0); Immature Granulocyte Absolute 0.01 K/mm3 (0.00-0.031); Immature Granulocyte Percent A 0.2 % (0-0.5); Lymphocytes Absolute Auto 1.23 K/mm3 (0.9-3.2); Lymphocytes Percent Auto 22.5 % (18.3-44.2); Mean Corpuscular HGB Conc 32.7 g/dl (32-36); Mean Corpuscular Volume 94.9 fl (80-100); Mean Platelet Volume 10.7 fl (7.4-10.4); Monocytes Absolute Auto 0.6 K/mm3 (0.1-0.6); Monocytes Percent Auto 10.8 % (2.6-8.5); Neutrophils Absolute Auto 3.4 K/mm3 (1.3-6.7); Neutrophils Percent Auto 62.5 % (45.5-73.1); Platelet Count Result 228 k/mm3 (150-375); Red Blood Count 4.32 M/mm3 (4.2-5.4); Red Cell Distribution Width 12.8 % (11.5-14.5); White Blood Count 5.5 K/mm3 (4.5-10.0)
[2024-07-22 09:55] LABS: Alanine Aminotransferase 17 U/L (6-35); Albumin Level 4.2 g/dL (3.5-5.1); Alkaline Phosphatase 31 U/L (38-126); Anion Gap 7 mmol/L (4-12); Aspartate Amino Transferase 31 U/L (14-36); Bilirubin,Total 0.7 mg/dL (0.2-1.3); Blood Urea Nitrogen 23 mg/dL (7-17); Calcium 9.4 mg/dL (8.4-10.2); Carbon Dioxide 28 mmol/L (22-30); Chloride 103 mmol/L (98-107); Cholesterol 207 mg/dL (0-200); Estimated Glomerular Filt Rate 60; Glucose 90 mg/dL (65-110); HDL Direct 73 mg/dL; Potassium 4.2 mmol/L (3.4-5.0); Sodium 138 mmol/L (137-145); Triglycerides 71 mg/dL (<150)
[2024-07-22 10:06] LABS: LDL Cholesterol Direct 109 mg/dL
[2024-07-22 10:37] LABS: Vitamin D 25 Hydroxy 86.9 ng/mL
== END 2024-07-22 09:01 | disposition home or self-care (01) ==
LOC: ANHLAB 09:06
PROVIDERS: PCP Nurse Practitioner; Visit Provider Internal Medicine
DX: E78.5 Hyperlipidemia, unspecified (principal); Z79.899 Other long term (current) drug therapy; Z13.29 Encounter for screening for other suspected endocrine disorder; E78.00 Pure hypercholesterolemia, unspecified; I10 Essential (primary) hypertension; Z13.21 Encounter for screening for nutritional disorder
CPT/HCPCS: 36415; 80053; 80061; 82306; 84443; 85025

== ENCOUNTER 2025-07-31 08:58 | Outpatient (CLI) | payer MEDICARE, SELFPAY ==
[2025-07-31 09:27] LABS: Hematocrit 41.9 % (37.0-47.0); Hemoglobin 13.4 g/dL (12.0-15.0); Mean Corpuscular HGB Conc 32.0 g/dl (32-36); Mean Corpuscular Hemoglobin 29.4 pg (26-34); Mean Corpuscular Volume 91.9 fl (80-100); Platelet Count Result 274 k/mm3 (150-375); Red Blood Count 4.56 M/mm3 (4.2-5.4); White Blood Count 4.8 K/mm3 (4.5-10.0)
[2025-07-31 09:56] LABS: Alanine Aminotransferase 18 U/L (6-35); Albumin Level 4.1 g/dL (3.5-5.1); Alkaline Phosphatase 38 U/L (38-126); Anion Gap 4 mmol/L (4-12); Aspartate Amino Transferase 28 U/L (14-36); Bilirubin,Total 0.5 mg/dL (0.2-1.3); Blood Urea Nitrogen 19 mg/dL (7-17); Calcium 9.6 mg/dL (8.4-10.2); Carbon Dioxide 29 mmol/L (22-30); Chloride 106 mmol/L (98-107); Cholesterol 215 mg/dL (0-200); Estimated Glomerular Filt Rate 60; Glucose 90 mg/dL (65-110); HDL Direct 74 mg/dL; Potassium 4.2 mmol/L (3.4-5.0); Sodium 139 mmol/L (137-145); Total Protein 6.6 g/dL (6.3-8.2); Triglycerides 100 mg/dL (<150)
== END 2025-07-31 08:59 | disposition home or self-care (01) ==
PROVIDERS: PCP Nurse Practitioner; Visit Provider Nurse Practitioner
DX: E78.5 Hyperlipidemia, unspecified (principal)
CPT/HCPCS: 36415; 80053; 80061; 85027

== ENCOUNTER 2025-09-01 00:57 | Day surgery (SDC) | payer MEDICARE, SELFPAY ==
[2025-08-24 11:20] VITALS: BMI 21.7
[2025-09-01 11:51] VITALS: BP 164/69; PULSE 66; RESP 18; TEMP 36.2; O2SAT 100
[2025-09-01] MEDS: LACTATED RINGERS 1,000 ML 150 ML IV CONT (12:01)
--- NOTE | 2025-09-01 12:27 | WPDANESEPPF ---
Anes - Initial Pre Proc Eval Procedure: Operation Date: 09/01/25 13:00 Proposed Procedures p Screening Colonoscopy - Kosta Marte MD Date/Time: 09/01/25 12:27 Surgeon: Kosta Marte MD Pre Op Diagnosis: Family history of malignant neoplasm of digestive Patient Data Age: 80 Gender: F Height: 1.68 m Weight: 60.3 kg Last Vital Signs Temp 97.1 F L 09/01/25 11:51 Pulse 66 09/01/25 11:51 Resp 18 09/01/25 11:51 BP 164/69 H 09/01/25 11:51 Pulse Ox 100 09/01/25 11:51 O2 Del Method Room Air 09/01/25 11:51 Allergies Allergy/AdvReac Type Severity Reaction Status Date / Time amoxicillin AdvReac Intermediate Diarrhea Verified 09/01/25 11:47 MERCURY COMPOUNDS Allergy Intermediate ITCHING AT Uncoded 07/28/25 10:01 EYES Home Medications ?Medication ?Instructions ?Recorded ?Confirmed ?Type aspirin 81 mg tablet 81 mg PO DAILY 08/17/20 09/01/25 History calcium 600 mg capsule 1,200 mg PO DAILY 08/17/20 09/01/25 History lysine 500 mg tablet (L-Lysine) 1,000 mg PO DAILY 08/17/20 09/01/25 History vitamin E mixed 400 unit capsule 400 unit PO DAILY 08/17/20 09/01/25 History multivitamin with minerals-folic 1 tablet PO DAILY 05/02/22 09/01/25 History acid 0.4 mg tablet psyllium husk 0.4 gram capsule 0.4 g PO DAILY 07/23/24 09/01/25 History (Daily Fiber) alendronate 70 mg tablet (Fosamax) 70 mg PO WEEKLY #12 tabs 12/25/24 09/01/25 Rx Vitamin D 50 mcg PO DAILY 01/27/25 09/01/25 History Patient hx anesthesia problems: none Family hx anesthesia problems: none Results Review: All pre-operative results and documents have been reviewed as part of the pre-operative evaluation. [facility] Past Medical History Medical History BMI 21.0-21.9, adult DEON (obstructive sleep apnea) Dupuytren's contracture of left hand Herpes keratitis of right eye Pneumonia Synovial cyst of lumbar spine removed Osteoporosis Spinal cord abscess Essential (primary) hypertension Hypercholesterolemia Surgical History Surgical History H/O dilation and curettage Status post endovenous radiofrequency ablation (RFA) of saphenous vein Family History Family History (Updated 07/28/25 @ 14:04 by Yanci Calero [facility]) Father Carcinoma of colon Mother Cerebrovascular accident Family history of hypothyroidism Rheumatic fever Sibling Renal cancer FH: kidney cancer Social History Social History Smoking packs per day: 0.25 Smoking cigarettes per day: 5.0 Years smoked: 7 Smoking pack-years: 1.75 Smoking status: Former smoker Tobacco type: cigarettes Smoking end date: 05/05/70 Alcohol intake: current Drinks per week: 7 Alcohol use details: COCKTAIL/WINE Substance use: never Substance use type: does not use Do You Feel Safe in your Home?: Yes Lack of Transportation: No Lack of Food: Never True Current Housing: I Have Housing Concerned About Future Housing: No Difficulty Paying Gas/Electric Bills: No Difficulty Paying for Meds: No Currently Unemployed: No Education: High School Diploma/GED Difficulty w/ Childcare or Family Care: No Living arrangements: with family 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 Borderline HTN. Informed Consent: The patient's anesthetic plan and its attendant risks and benefits were discussed with the patient/family/POA. Questions were solicited and answers provided to the satisfaction of the patient/family/POA.
--- NOTE | 2025-09-01 12:51 | PM.HPGS ---
History of Present Illness History of Present Illness Consent: Risks, benefits, and alternatives have been discussed and questions answered. Patient agrees to proceed with procedure. Chief complaint: Family history of malignant neoplasm of digestive Narrative: Nikunj Cohen is a 80 year old female with last colonoscopy 2019, family history is significant father had colon cancer as well as 3 paternal uncles and a cousin. Patient herself has had colon polyps in the past. Review of Systems Review of Systems: All systems reviewed & are unremarkable except as noted in HPI and below PMFSH Past Medical History Medical History (Updated 09/01/25 @ 12:51 by Kosta Marte MD) Adenomatous colon polyp BMI 21.0-21.9, adult DEON (obstructive sleep apnea) Dupuytren's contracture of left hand Herpes keratitis of right eye Pneumonia Synovial cyst of lumbar spine removed Osteoporosis Spinal cord abscess Essential (primary) hypertension Hypercholesterolemia Surgical History Surgical History H/O dilation and curettage Status post endovenous radiofrequency ablation (RFA) of saphenous vein Family History Family History (Updated 07/28/25 @ 14:04 by RENETTA Cook) Father Carcinoma of colon Mother Cerebrovascular accident Family history of hypothyroidism Rheumatic fever Sibling Renal cancer FH: kidney cancer Social History Social History Smoking packs per day: 0.25 Smoking cigarettes per day: 5.0 Years smoked: 7 Smoking pack-years: 1.75 Smoking status: Former smoker Tobacco type: cigarettes Smoking end date: 05/05/70 Alcohol intake: current Drinks per week: 7 Alcohol use details: COCKTAIL/WINE Substance use: never Substance use type: does not use Do You Feel Safe in your Home?: Yes Lack of Transportation: No Lack of Food: Never True Current Housing: I Have Housing Concerned About Future Housing: No Difficulty Paying Gas/Electric Bills: No Difficulty Paying for Meds: No Currently Unemployed: No Education: High School Diploma/GED Difficulty w/ Childcare or Family Care: No Living arrangements: with family 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 Gender identity (if verbalized by the patient): Female Spiritual care concerns: No Meds Home Medications and Allergies Home Medications ?Medication ?Instructions ?Recorded ?Confirmed ?Type aspirin 81 mg tablet 81 mg PO DAILY 08/17/20 09/01/25 History calcium 600 mg capsule 1,200 mg PO DAILY 08/17/20 09/01/25 History lysine 500 mg tablet (L-Lysine) 1,000 mg PO DAILY 08/17/20 09/01/25 History vitamin E mixed 400 unit capsule 400 unit PO DAILY 08/17/20 09/01/25 History multivitamin with minerals-folic 1 tablet PO DAILY 05/02/22 09/01/25 History acid 0.4 mg tablet psyllium husk 0.4 gram capsule 0.4 g PO DAILY 07/23/24 09/01/25 History (Daily Fiber) alendronate 70 mg tablet (Fosamax) 70 mg PO WEEKLY #12 tabs 12/25/24 09/01/25 Rx Vitamin D 50 mcg PO DAILY 01/27/25 09/01/25 History Allergies Allergy/AdvReac Type Severity Reaction Status Date / Time amoxicillin AdvReac Intermediate Diarrhea Verified 09/01/25 11:47 MERCURY COMPOUNDS Allergy Intermediate ITCHING AT Uncoded 07/28/25 10:01 EYES Vital Signs Vital Signs - 24 hr 09/01/25 11:51 Temperature 97.1 F L Pulse Rate 66 Respiratory Rate 18 Blood Pressure 164/69 H Pulse Oximetry 100 Oxygen Delivery Room Air Exam Const: General: comfortable and no acute distress HENMT: Face/Nose/Sinus: Normal nares present Eyes: General: appearance normal, both eyes and all related structures Neck: Neck: no JVD Resp: Auscultation: clear to auscultation bilaterally Cardio: Rate: regular rate Rhythm: regular rhythm GI: Inspection: non-distended GI Palp: Yes Soft to palpation Skin: General skin exam: normal color Extrem: General: normal to inspection Psych: Mental Status: mental status grossly normal Assessment and Plan Assessment and plan (1) Family history of colon cancer: Code(s): Z80.0 - Family history of malignant neoplasm of digestive organs Status: Acute (2) Adenomatous colon polyp: Code(s): D12.6 - Benign neoplasm of colon, unspecified Status: Acute Assessment and Plan: colonoscopy
--- NOTE | 2025-09-01 13:10 | SUR.OPER ---
cecal polyp unretrieved, dr mcconnell aware,
--- NOTE | 2025-09-01 13:11 | S_PTH ---
PATIENT: Nikunj Cohen LOC: [facility]#:[id number] AGE/SX: 80/F ROOM: RE09/01/[address]: Kosta Marte MD : 1945 BED: DIS: 09/01/2025 SPEC #: [id number] RECD: 09/01/25 13:13 STATUS: PARMINDER REBarbara #: [id number] CYNTHIA: 09/01/25 13:[address]: Kosta Marte DEPT: [facility] [place] Surgical RECD BY: Ernst Diaz ENTERED: 09/01/25 13:13 SP TYPE: Surgical OTHR DR: Ray Montgomery APRN Tissues: A - Colon Polypectomy Procedures: Hematoxylin and Eosin Stain Gross and Microscopic Level 4
[2025-09-01 13:13] VITALS: BP 132/75; PULSE 63; RESP 14; O2SAT 98
[2025-09-01 13:23] VITALS: BP 136/71; PULSE 54; RESP 19; O2SAT 100
[2025-09-01 13:33] VITALS: BP 141/78; PULSE 55; RESP 17; O2SAT 100
== END 2025-09-01 13:45 | disposition home or self-care (01) ==
PROVIDERS: PCP Nurse Practitioner; Referring Provider Nurse Practitioner; Visit Provider Internal Medicine Gastroenterology
PROC: 0DJD8ZZ Inspection of Lower Intestinal Tract, Via Natural or Artificial Opening Endoscopic (ICD-10-PCS; CPT 45378; principal; 2025-09-01 13:00)
DX: Z12.11 Encounter for screening for malignant neoplasm of colon (principal); D12.2 Benign neoplasm of ascending colon; K57.30 Diverticulosis of large intestine without perforation or abscess without bleeding; K64.8 Other hemorrhoids; Z80.0 Family history of malignant neoplasm of digestive organs
CPT/HCPCS: 45380; 45385; 88305; J2003; J2704; J7120